=== PATIENT | female | born 1965 ===

== ENCOUNTER 2018-06-27 09:34 | Day surgery (SDC) | payer MEDICARE ==
[~2018-06-27 09:34] MED LIST: Bupivacaine HCl 0.5% PF (30 ml) Inj ONE; Iohexol 240 (50 ml) ONE; Lidocaine Hydrochloride 5 ML INJ ONE; Sodium Chloride 0.9% 0 ML IV ONE
[2018-06-27] MEDS ORDERED: Propofol 10 mg/ml Inj (20 ML) ONE (11:46)
[2018-06-27] MEDS ORDERED: Midazolam 2 MG/2 ML VIAL ONE (11:46)
[2018-06-27] MEDS ORDERED: Lidocaine Hydrochloride 5 ML INJ ONE (11:49)
[2018-06-27 11:59] VITALS: BMI 25.0
[2018-06-27 13:05] VITALS: RESP 15; O2SAT 99
[2018-06-27 13:07] VITALS: BP 111/67; PULSE 69; TEMP 97.7
--- NOTE | 2018-06-27 13:44 | RAD ---
Date of service: 06/27/2018 PROCEDURE: Intraoperative Fluoroscopy. HISTORY: LUMBAR DISC HERNIATION FINDINGS: Fluoroscopic assistance was provided for lumbar epidural spinal injection. Please refer to the operative report from APOLONIA Hernandez, , MD [facility].
--- NOTE | 2018-06-28 00:46 | OP ---
PROCEDURE DATE: 06/27/2018 SURGEON: Win Walters MD OPERATIVE PROCEDURE: Lumbosacral epidural steroid injection, transforaminal approach with fluoroscopic guidance. INJECTATE: A total of 5.0 mL; consisting of 2.5 mL of Kenalog (40 mg/mL), with the remainder of saline. LEVELS INJECTED: Right L5 and S1. APPROACH: Transforaminal approach. COMMENTS: Due to the patient's stated allergy, the use of contrast was not performed. FINDINGS: Flow of contrast was excellent along the right L5 and S1 nerve roots and into the epidural space. PROCEDURE: The patient was prepped and draped in a sterile fashion in the prone position after informed consent was signed and all the patient's questions were answered including the risks, benefits, alternative treatment options, and prognosis. The risks include but are not limited to infection, allergic reaction, increased pain, lack of therapeutic benefit, steroid reaction, nerve damage, paralysis, stroke, epidural hematoma, syncope, headache, respiratory or cardiac arrest, and scar formation. The C-arm was positioned so that an oblique view of the foramen as noted above was visualized. The soft tissues overlying this structure were infiltrated with 2-3 mL of 1% lidocaine without epinephrine. A 22-gauge spinal needle was inserted toward the target using a "trajectory" view along the fluoroscope beam. Under AP and lateral visualization, the needle was advanced so it did not puncture dura. Biplanar projections were used to confirm position. Aspiration was confirmed to be negative for CSF and/or blood. A 1 to 2 mL volume of Omnipaque-300 was injected and flow of contrast was noted at each level. Radiographs were obtained for documentation purposes. After attaining flow of contrast documented above, a 1 mL test dose of 1% lidocaine was injected into each respective transforaminal space. The patient was observed for 90 seconds post injection. After no sensory deficits were reported, and normal lower extremity motor function was noted, the above injectate was administered so that equal amounts of the injectate were placed at each foramen into the transforaminal epidural space. The patient tolerated the procedure well and was discharged after an appropriate period of observation. If there are any complications, the patient was instructed to call us. The patient is to follow up with the requesting physician within one to two weeks. Ariz MD Romeo
== END 2018-06-27 14:00 | disposition home or self-care (01) ==
LOC: C.SDS 09:34
PROVIDERS: ATTEND Neuromusculoskeletal Medicine, Sports Medicine
DX: M51.26 Other intervertebral disc displacement, lumbar region (principal)
CPT/HCPCS: 64483; 64484; J1100; J2250; J2704; Q9966